=== PATIENT | female | born 1945 | race Caucasian/White ===

== ENCOUNTER 2017-04-03 15:06 | Emergency (ER) | payer OTHER ==
[2017-04-03 15:31] VITALS: BP 165/93; PULSE 69; TEMP 99.1; BMI 26.6
[2017-04-03] MEDS ORDERED: KETOROLAC TROMETHAMINE 60 MG/2 ML VIAL IM ONE (16:44)
[2017-04-03] MEDS ORDERED: KETOROLAC TROMETHAMINE 30 MG/1 ML VIAL ONE (16:46)
--- NOTE | 2017-04-03 16:49 | PDOC ---
History of Present Illness - General Chief Complaint: Injury Stated Complaint: BACK PAIN Time Seen by Provider: 04/03/17 16:08 - History of Present Illness Initial Comments: 04/03/17 16:45 CHIEF COMPLAINT: low back pain HISTORY OF PRESENT ILLNESS: 71 yo F with hx of HTN presents to [facility] with pain to low back s/p fall last week. Patient reports she was trying to "climb onto a tall chair" and the chair slipped out from underneath her and she landed on her bottom. She reports she did catch her self with her hands but she still fell down onto her bottom. She denies any LOC, trauma to her head, loss of sensation to her legs, no loss of bowel or bladder function, and is fully ambulatory. PAST MEDICAL HISTORY: HTN FAMILY HISTORY: Denies SOCIAL HISTORY: Denies tobacco, alcohol, illicit drug use. SURGICAL HISTORY: Denies ALLERGIES: No known drug allergies REVIEW OF SYSTEMS General/Constitutional: Denies fever or chills. Denies weakness, weight change. HEENT: Denies change in vision. Denies ear pain or discharge. Denies sore throat. Cardiovascular: Denies chest pain or shortness of breath. Respiratory: Denies cough, wheezing, or hemoptysis. Gastrointestinal: Denies nausea, vomiting, diarrhea or constipation. Denies rectal bleeding. Genitourinary: Denies dysuria, frequency, or change in urination. Musculoskeletal: Denies joint or muscle swelling or pain. Denies neck or back pain. Skin and breasts: Denies rash or easy bruising. Neurologic: Denies headache, vertigo, loss of consciousness, or loss of sensation. PHYSICAL EXAM General Appearance: Well-appearing, appropriately dressed. No apparent distress. HEENT: EOMI, PERRLA. No conjunctival pallor. No photophobia, scleral icterus. Neck: Supple. Trachea midline. No tenderness, rigidity, carotid bruit, stridor , lymphadenopathy, or thyromegaly. Respiratory/Chest: Lungs CTAB. Cardiovascular: RRR. S1, S2. Vascular Pulses: Dorsalis-Pedis (R): 2+, Dorsalis-Pedis (L): 2+ Gastrointestinal/Abdominal: Normal bowel sounds. Abdomen soft, non-distended. No tenderness or rebound tenderness. No organomegaly, pulsatile mass, guarding , hernia, hepatomegaly, splenomegaly. Musculoskeletal/Extremities: Reproducible tenderness to lower back to paravertebral muscles at L5-S1, more pronounced on R side. Normal inspection. FROM of all extremities, normal capillary refill. Pelvis Stable. No CVA tenderness. No tenderness to extremities, pedal edema, swelling, erythema or deformity. Integumentary: Appropriate color, dry, warm. No cyanosis, erythema, jaundice or rash Neurologic: certification engineer II-XII intact. Fully oriented, alert. Appropriate mood/affect. Motor strength 5/5. No appreciable EOM palsy, facial droop or sensory deficit. Past History - Past Medical History Allergies/Adverse Reactions: Allergies Allergy/AdvReac Type Severity Reaction Status Date / Time No Known Allergies Allergy Verified 04/03/17 15:31 Home Medications: Ambulatory Orders Naproxen [Naprosyn -] 250 mg PO BID #14 tablet 04/03/17 COPD: No Thyroid Disease: No - Suicide/Smoking/Psychosocial Hx Smoking History: Never smoked Hx Alcohol Use: No Drug/Substance Use Hx: No Substance Use Type: None *Physical Exam - Vital Signs Last Vital Signs Temp Pulse Resp BP Pulse Ox 99.1 F 69 20 165/93 96 04/03/17 15:27 04/03/17 15:27 04/03/17 15:27 04/03/17 15:27 04/03/17 15:27 Medical Decision Making - Medical Decision Making 04/03/17 16:49 71 yo F with hx of HTN presents to [facility] with pain to low back s/p fall last week. -30 mg Toradol IM 04/03/17 16:52 Patient is well appearing, fully ambulatory and in no acute distress. Will treat with NSAIDS. Advised patient to take medications as prescribed and f/u with orthopedics if symptoms persist. Advised patient of signs and symptoms for return to ER; patient verbalized understanding and agrees to plan. *DC/Admit/Observation/Transfer Diagnosis at time of Disposition: Low back pain Qualifiers: Chronicity: acute Back pain laterality: bilateral Sciatica presence: without sciatica Qualified Code(s): M54.5 - Low back pain - Discharge Dispostion Disposition: HOME Condition at time of disposition: Stable Admit: No - Prescriptions Prescriptions: Naproxen [Naprosyn -] 250 mg PO BID #14 tablet - Referrals Referrals: Raheem Lares MD [Staff Physician] - Yovani Mojica MD [Staff Physician] - - Patient Instructions Printed Discharge Instructions: DI for Low Back Pain Additional Instructions: Please take medication as prescribed. If symptoms persist past 5-7 days, please follow up with the orthopedic doctor. If you develop ANY loss of sensation to your legs, loss of bowel or bladder function, inability to walk, chest pain, shortness of breath, headache, dizziness, weakness, slurred speech, or any new or worsening symptoms, please return to the ER. Por favor tome la medicacin segn lo prescrito. Si los sntomas persisten ms all de 5-7 kearney, por favor ingrid un seguimiento con el monty aguirre. Si desarrolla CUALQUIER prdida de sensibilidad en lani piernas, prdida de funcin intestinal o de la vejiga, incapacidad para caminar, dolor en el pecho, dificultad para respirar, dolor de darek, mareos, debilidad, dificultad para hablar o cualquier sntoma nuevo o que empeora, vuelva a la bong de emergencias. . Print Language: AUSTRALIAN - Post Discharge Activity
== END 2017-04-03 17:03 | disposition home or self-care (01) ==
LOC: JERFT 15:06
PROC: 3E0233Z Introduction of Anti-inflammatory into Muscle, Percutaneous Approach (ICD-10-PCS; principal; 2017-04-03)
DX: M54.5 Low back pain (principal); I10 Essential (primary) hypertension; W07.XXXA Fall from chair, initial encounter; Y93.89 Activity, other specified; Y92.89 Other specified places as the place of occurrence of the external cause; Y99.8 Other external cause status
CPT/HCPCS: 96372; 99281-25

== ENCOUNTER 2017-11-16 09:39 | Day surgery (SDC) | payer OTHER ==
[2017-11-16 10:05] VITALS: BMI 31.2
[2017-11-16 11:04] VITALS: TEMP 98
[2017-11-16 12:21] VITALS: BP 147/80; PULSE 76
--- NOTE | 2017-11-17 18:26 | PATH ---
Surgical Pathology Report Patient Name: NATALIE BROOKS [facility]. Rec. #: [id number] /Age/Gender: 1945 (Age: 72) / F Account: [id number] Location: [facility]-ENDOSCOPY Taken: 11/16/2017 Received: 11/16/2017 Reported: 11/17/2017 Physicians: Cyrus Singh D.O. Specimen(s) Received A: BX CECUM POLYP B: BX TRANSVERSE COLON POLYP C: POLYP SIGMOID D: RECTAL POLYP Clinical History Screening Postoperative diagnosis: Diverticulosis, colon polyps, hemorrhoids Final Diagnosis A. CECUM POLYP, BIOPSY: COLONIC MUCOSA WITH LYMPHOID AGGREGATE AND SURFACE HYPERPLASTIC CHANGE: B. TRANSVERSE COLON POLYP, POLYPECTOMY: TUBULAR ADENOMA. C. SIGMOID POLYP, POLYPECTOMY: HYPERPLASTIC POLYP. D. RECTAL POLYP, POLYPECTOMY: HYPERPLASTIC POLYP. Electronically Signed Gus Arciniega M.D. Gross Description A. Received in formalin, labeled "polyp cecum" are 2 page, irregular portions of soft tissue measuring 0.3 and 0.6 cm. in greatest dimension. The specimens are submitted in toto in one cassette. B. Received in formalin, labeled "polyp transverse colon" is a page, irregular portion of soft tissue measuring 0.3 cm. in greatest dimension. The specimen is submitted in toto in one cassette. C. Received in formalin, labeled "polyp sigmoid" is a page, irregular portion of soft tissue measuring 0.3 cm. in greatest dimension. The specimen is submitted in toto in one cassette. D. Received in formalin, labeled "polyp rectum" is a page, irregular portion of soft tissue measuring 0.4 cm. in greatest dimension. The specimen is submitted in toto in one cassette. 11/16/2017 saudi11/16/2017
== END 2017-11-16 12:22 | disposition home or self-care (01) ==
LOC: JASU-ENDO 09:39 → JOR 09:39 → JASU-ENDO 12:22
PROVIDERS: ATTEND Internal Medicine Gastroenterology
PROC: 0DBL8ZX Excision of Transverse Colon, Via Natural or Artificial Opening Endoscopic, Diagnostic (ICD-10-PCS; 2017-11-16)
PROC: 0DBN8ZX Excision of Sigmoid Colon, Via Natural or Artificial Opening Endoscopic, Diagnostic (ICD-10-PCS; 2017-11-16)
PROC: 0DBP8ZX Excision of Rectum, Via Natural or Artificial Opening Endoscopic, Diagnostic (ICD-10-PCS; 2017-11-16)
PROC: 0DBH8ZX Excision of Cecum, Via Natural or Artificial Opening Endoscopic, Diagnostic (ICD-10-PCS; principal; 2017-11-16 09:00)
DX: Z12.11 Encounter for screening for malignant neoplasm of colon (principal); K62.1 Rectal polyp; K64.8 Other hemorrhoids; D12.0 Benign neoplasm of cecum; D12.5 Benign neoplasm of sigmoid colon; D12.3 Benign neoplasm of transverse colon; E11.9 Type 2 diabetes mellitus without complications; Z79.84 Long term (current) use of oral hypoglycemic drugs
CPT/HCPCS: 82962; 88305-TC